=== PATIENT | female | born 2000 | race Caucasian/White ===

== ENCOUNTER 2020-09-19 08:31 | Emergency (ER) | payer MEDICAID, OTHER ==
[~2020-09-19] VITALS: Ht 162.6 cm; Wt 57.2 kg
[2020-09-19 09:26] LABS: MICROSCOPIC INDICATED
[2020-09-19] MEDS ORDERED: PHENAZOPYRIDINE 200 MG TABLET ONE (10:19)
--- NOTE | 2020-09-19 10:23 | NUR ---
PT REC'VD DISCHARGE INSTRUCTIONS AND EDUCATION. PT HAD NO QUESTIONS.
[2020-09-19 10:24] VITALS: BP 108/74
[2020-09-19] MEDS ORDERED: PHENAZOPYRIDINE 200 MG TABLET PO ONE (10:30)
--- NOTE | 2020-09-19 10:30 | NUR ---
PT AMBULATED TO OH AREA, STEADY GAIT
== END 2020-09-19 10:55 | disposition home or self-care (01) ==
LOC: ED 10:31
DX: N30.01 Acute cystitis with hematuria (principal); R30.0 Dysuria; R39.15 Urgency of urination
CPT/HCPCS: 81001; 81025; 87077; 87086; 87186; 99284